=== PATIENT | male | born 1945 | race Caucasian/White ===

== ENCOUNTER 2018-04-24 12:59 | Emergency (ER) | payer MEDICARE ==
[2018-04-24] MEDS ORDERED: NORMAL SALINE 1000 ML 1,000 ML IV ONE (13:27)
[2018-04-24] MEDS ORDERED: ACETAMINOPHEN 325 MG TABLET PO ONE (13:28)
[2018-04-24 13:43] LABS: ABSOLUTE MONOCYTES (AUTO) 0.7 10^3/uL (0.1-1.4); ABSOLUTE NEUT (AUTO) 14.1 10^3/uL (1.7-8.2); BASOPHILS % (AUTO) 0.2 % (0-2); EOSINOPHILS % (AUTO) 0.1 % (0-6); HEMATOCRIT 46.7 % (37.9-51.0); LYMPHOCYTES % (AUTO) 6.6 % (13-45); MEAN CORPUSCULAR HEMOGLOBIN 30.4 pg (27.0-33.4); MEAN CORPUSCULAR HGB CONC 34.4 g/dL (32.0-36.0); MEAN CORPUSCULAR VOLUME 89 fl (80-97); MONOCYTES % (AUTO) 4.6 % (3-13); PLATELET COUNT 159 10^3/uL (150-450); RED BLOOD COUNT 5.27 10^6/uL (4.35-5.55); RED CELL DISTRIBUTION WIDTH 13.3 % (11.5-14.0); SEGMENTED NEUTROPHILS % (AUTO) 88.5 % (42-78); TOTAL CELLS COUNTED % (AUTO) 100 %; WHITE BLOOD COUNT 15.9 10^3/uL (4.0-10.5)
[2018-04-24 13:45] LABS: INTERNATIONAL RATION (INR) 0.94; PROTHROMBIN TIME 13.1 SEC (11.4-15.4)
[2018-04-24 13:51] LABS: ALANINE AMINOTRANSFERASE 24 U/L (21-72); ALKALINE PHOSPHATASE 87 U/L (38-126); ANION GAP 15 (5-19); ASPARTATE AMINO TRANSFERASE 22 U/L (17-59); BILIRUBIN,DIRECT 0.4 mg/dL (0.0-0.4); BILIRUBIN,TOTAL 1.2 mg/dL (0.2-1.3); BLOOD UREA NITROGEN 17 mg/dL (7-20); CALCIUM 9.2 mg/dL (8.4-10.2); CARBON DIOXIDE 23 mmol/L (22-30); CHLORIDE 96 mmol/L (98-107); GLUCOSE 358 mg/dL (75-110); POTASSIUM 4.3 mmol/L (3.6-5.0); SODIUM 133.5 mmol/L (137-145); TOTAL PROTEIN 7.1 g/dL (6.3-8.2)
[2018-04-24 13:58] LABS: APPEARANCE,URINE SLIGHTLY-CLOUDY; BILIRUBIN,URINE NEGATIVE (NEGATIVE); COLOR,URINE YELLOW; GLUCOSE, URINE >=500 mg/dL (NEGATIVE); KETONES,URINE NEGATIVE (NEGATIVE); LEUKOCYTE ESTERASE,URINE NEGATIVE (NEGATIVE); NITRITE,URINE POSITIVE (NEGATIVE); PROTEIN,URINE 30 mg/dL (NEGATIVE); URINE SPECIFIC GRAVITY 1.031; UROBILINOGEN,URINE NEGATIVE mg/dL (<2.0)
[2018-04-24 14:18] LABS: VENOUS BLOOD BASE EXCESS 0.9 mmol/L; VENOUS BLOOD HCO3 24.5 mmol/L (20-32); VENOUS BLOOD PCO2 36.3 mmHg (35-63); VENOUS BLOOD PH 7.45 (7.30-7.42)
[2018-04-24 14:27] LABS: A TYPE INFLUENZA AG NEGATIVE (NEGATIVE); B INFLUENZA AG NEGATIVE (NEGATIVE)
[2018-04-24] MEDS ORDERED: CEFTRIAXONE INJ 1000 MG VIAL IV ONE (14:54)
--- NOTE | 2018-04-24 14:55 | ER Document Report ---
ED Blood Sugar Problem - General Chief Complaint: High Blood Sugar Stated Complaint: BLOOD SUGAR ISSUES Time Seen by Provider: 04/24/18 13:12 Mode of Arrival: Medic Information source: Patient, Relative - [facility] Patient complains to provider of: High blood sugar and nausea Onset: Other - 72-year-old male with past medical history significant for diabetes for which she has been treated in the outpatient setting that presents for evaluation of elevated blood sugars as well as some fatigue and nausea today with resultant vomiting. Said he felt warm but never took his temperature though it was 103 degrees upon arrival. Is never felt anything like this in the past, nothing is made it better, nothing has made it worse. - Related Data Allergies/Adverse Reactions: No Known Allergies Allergy (Unverified 04/24/18 16:29) Past Medical History - General Information source: Patient - Social History Smoking Status: Former Smoker Smoking Education Provided: Yes Frequency of alcohol use: None Drug Abuse: None Lives with: Family Family History: None Review of Systems - Review of Systems -: Yes All other systems reviewed and negative Physical Exam - Vital signs Vitals: Temp Pulse Resp BP Pulse Ox 103.1 F H 85 28 H 154/76 H 96 04/24/18 13:07 04/24/18 13:07 04/24/18 13:07 04/24/18 13:07 04/24/18 13:07 - General General appearance: Appears well, Alert - HEENT Head: Normocephalic, Atraumatic Eyes: Normal Pupils: PERRL - Respiratory Respiratory status: No respiratory distress Chest status: Nontender Breath sounds: Normal Chest palpation: Normal - Cardiovascular Rhythm: Regular Heart sounds: Normal auscultation Murmur: No - Abdominal Inspection: Normal Distension: No distension Bowel sounds: Normal Tenderness: Nontender Organomegaly: No organomegaly - Back Back: Normal, Nontender - Extremities General upper extremity: Normal inspection, Nontender, Normal color, Normal ROM , Normal temperature General lower extremity: Normal inspection, Nontender, Normal color, Normal ROM , Normal temperature, Normal weight bearing. No: Jorge's sign - Neurological Neuro grossly intact: Yes Cognition: Normal Orientation: AAOx4 [place] Coma Scale Eye Opening: Spontaneous [place] Coma Scale Verbal: Oriented [place] Coma Scale Motor: Obeys Commands [place] Coma Scale Total: 15 Speech: Normal Motor strength normal: LUE, RUE, LLE, RLE Sensory: Normal - Psychological Associated symptoms: Normal affect, Normal mood Course - Re-evaluation Re-evalutation: 04/24/18 20:28 Years a febrile 72-year-old diabetic man that presents for evaluation of nausea and vomiting. On initial presentation he has an elevated blood glucose of greater than 400. He did not even know he had a fever until he arrived here today he notes that he is generally otherwise fairly healthy does not receive care because of the cost. He did not know he was febrile until he arrived here. Has no obvious signs of infection on initial examination. We will obtain broad workup for possible developing sepsis. We will administer fluids will plan to reassess. Patient's lactate is modestly elevated 2.7, discussed slight leukocytosis, has relatively reassuring chemistry, does have an elevated blood glucose. His urine is positive for nitrites suggestive of possible underlying infection. I do have a concern that this patient may be suffering from a urinary tract infection as result of his poorly controlled diabetes. Following administration of fluids he was given 1000 mg of Rocephin. Following administration of Rocephin I rechecked his lactate because he expressed a serious concern about staying in the hospital and desire to pursue treatment in the outpatient setting as he feels entirely fine it is noteworthy that if the ministration of Tylenol his fever defervesced, his respiratory rate resolved essentially to normal and his heart rate was normal his blood pressure remained normal throughout his time in the emergency department. His repeat lactate was in the normal range. I discussed with him the risks and benefits of further evaluation including admission and further lab tests HEENT his family declined this at this time and agree they will return in case of any worsening symptoms to the emergency room. - Vital Signs Vital signs: Temp Pulse Resp BP Pulse Ox 98.5 F 85 24 H 156/74 H 93 04/24/18 16:36 04/24/18 13:07 04/24/18 19:01 04/24/18 19:00 04/24/18 19:01 - Laboratory Result Diagrams: 04/24/18 12:30 04/24/18 12:30 Laboratory results interpreted by me: 04/24/18 04/24/18 04/24/18 12:30 12:30 13:46 WBC 15.9 H Seg Neutrophils % 88.5 H Lymphocytes % 6.6 L Absolute Neutrophils 14.1 H VBG pH Sodium 133.5 L Chloride 96 L Glucose 358 H POC Glucose Lactic Acid Urine Protein 30 H Urine Glucose (UA) >=500 H Urine Nitrite POSITIVE H 04/24/18 04/24/18 04/24/18 13:57 13:57 15:14 WBC Seg Neutrophils % Lymphocytes % Absolute Neutrophils VBG pH 7.45 H Sodium Chloride Glucose POC Glucose 311 H Lactic Acid 2.7 H Urine Protein Urine Glucose (UA) Urine Nitrite 04/24/18 17:40 WBC Seg Neutrophils % Lymphocytes % Absolute Neutrophils VBG pH Sodium Chloride Glucose POC Glucose 286 H Lactic Acid Urine Protein Urine Glucose (UA) Urine Nitrite Discharge - Discharge Clinical Impression: Hyperglycemia, Leukocytes in urine Urinary tract infection Qualifiers: Urinary tract infection type: site unspecified Hematuria presence: without hematuria Qualified Code(s): N39.0 - Urinary tract infection, site not specified Elevated WBC count Qualifiers: Leukocytosis type: other Qualified Code(s): D72.828 - Other elevated white blood cell count Fever Qualifiers: Fever type: unspecified Qualified Code(s): R50.9 - Fever, unspecified Condition: Good Disposition: HOME, SELF-CARE Additional Instructions: You were seen today in the emergency department for urinary tract infection and fever. Your blood sugar was also elevated. You need to schedule an appointment with the primary physician in the coming 2 weeks to reassess whether you need a change in your blood sugar medication. Use the antibiotic prescribed you 4 times daily as directed. You can use Tylenol for your fevers and body aches. If you have worsening fevers, feel more sick, started throwing up and can eat he should return to the emergency room as it could be an emergency. Prescriptions: Cephalexin Monohydrate [Keflex 500 mg Capsule] 500 mg PO Q6H 10 Days #40 capsule
--- NOTE | 2018-04-24 14:59 | RADIOLOGY REPORT (SQ) ---
EXAM DESCRIPTION: CHEST 2 VIEWS COMPLETED DATE/TIME: 04/24/2018 2:48 pm REASON FOR STUDY: fever unknown origin COMPARISON: None. EXAM PARAMETERS: NUMBER OF VIEWS: two views TECHNIQUE: Digital Frontal and Lateral radiographic views of the chest acquired. RADIATION DOSE: NA LIMITATIONS: none FINDINGS: LUNGS AND PLEURA: No opacities, masses or pneumothorax. No pleural effusion. MEDIASTINUM AND HILAR STRUCTURES: No masses or contour abnormalities. HEART AND VASCULAR STRUCTURES: Heart normal size. No evidence for failure. BONES: No acute findings. HARDWARE: None in the chest. OTHER: No other significant finding. IMPRESSION: NO ACUTE RADIOGRAPHIC FINDING IN THE CHEST. TECHNICAL DOCUMENTATION: JOB ID: [id number] [employer]- All Rights Reserved Reading location - IP/workstation name: [email or web address]
[2018-04-24 19:37] VITALS: BP 156/74
--- NOTE | 2018-04-25 09:35 | EKG REPORT ---
SEVERITY:- NORMAL ECG - SINUS RHYTHM : Confirmed by: Leticia Arvizu 25-Apr-2018 09:33:35
== END 2018-04-24 19:15 | disposition home or self-care (01) ==
LOC: ER 12:59
DX: E11.65 Type 2 diabetes mellitus with hyperglycemia (principal); N39.0 Urinary tract infection, site not specified; R50.9 Fever, unspecified; D72.829 Elevated white blood cell count, unspecified; R11.2 Nausea with vomiting, unspecified; R53.83 Other fatigue; Z87.891 Personal history of nicotine dependence
CPT/HCPCS: 93005; 99284; 96365; 36415; 87040; 87086; 82962; 85025; 85610; 87077; 87088; 80053; 81001; 87186; 82803; 83605; 87804; 71046; 93010; A9270; J0696; J7030